=== PATIENT | male | born 1990 | race African-American/Black ===

== ENCOUNTER 2021-05-01 15:18 | Emergency (ER) | payer OTHER ==
[~2021-05-01] VITALS: Ht 177.8 cm; Wt 91.0 kg
[2021-05-01] MEDS ORDERED: SODIUM CHLORIDE 0.9% 1,000 ML IV ONE (15:45)
[2021-05-01 17:10] LABS: BASOPHILS % 0.6 % (0.0-2.0); EOSINOPHILS % 2.3 % (0.0-5.0); HEMATOCRIT. 43.6 % (42.0-52.0); HEMOGLOBIN. 14.8 g/dL (14.0-18.0); LYMPHOCYTES % 16.7 % (20.0-50.0); MEAN CORPUSCULAR HEMOGLOBIN 29.3 pg (28.0-32.0); MEAN CORPUSCULAR VOLUME 86.2 fL (80.0-94.0); MEAN PLATELET VOLUME 7.8 fl (7.4-10.4); MONOCYTES % 12.1 % (2.0-8.0); NEUTROPHILS % 68.3 % (40.0-76.0); PLATELET 317 x1000/uL (130-400); RED BLOOD CELL COUNT 5.06 mill/uL (4.7-6.1); RED CELL DISTRIBUTION WIDTH 14.1 % (11.6-14.6)
[2021-05-01 17:12] LABS: CHLORIDE 110 mEq/L (98-107)
[2021-05-01 17:16] LABS: ETHANOL BLOOD < 10 mg/dL
[2021-05-01 17:20] LABS: CREATINE KINASE 281 IU/L (39-308)
[2021-05-01 17:36] VITALS: BP 142/84
[2021-05-01] MEDS ORDERED: MICONAZOLE NITRATE 2% OINT 71GM TOP SCH (21:00)
== END 2021-05-01 17:37 ==
LOC: ER 15:18
DX: R55 Syncope and collapse (principal); F31.9 Bipolar disorder, unspecified; Z87.891 Personal history of nicotine dependence
CPT/HCPCS: 36415; 71045; 80053; 80320; 82550; 84484; 85025; 93005; 99285; J7030; G0480